=== PATIENT | female | born 2000 | race Caucasian/White ===

== ENCOUNTER 2024-01-06 22:57 | Emergency (ER) | payer MEDICAID, OTHER ==
[~2024-01-06] VITALS: Ht 160 cm; Wt 98.0 kg
[2024-01-07] MEDS: ACETAMINOPHEN 325MG TABLET PO ONE (07:40)
[2024-01-07] MEDS: ALBUTEROL (0.083%) 2.5MG/3ML NEB HHN STA (07:46)
[2024-01-07 07:55] VITALS: PULSE 55; RESP 18; O2SAT 99
[2024-01-07 09:47] LABS: CHLORIDE 108 mEq/L (98-107); POTASSIUM 4.1 mEq/L (3.5-5.1); SODIUM 143 mEq/L (136-145)
[2024-01-07 09:48] LABS: CALCIUM 9.7 mg/dL (8.7-10.4); CARBON DIOXIDE 27 mEq/L (21-32)
[2024-01-07 09:52] LABS: BASOPHILS % 0.8 % (0.0-2.0); HEMATOCRIT. 43.7 % (36.0-48.0); HEMOGLOBIN. 14.3 g/dL (12.0-16.0); MEAN CORPUSCULAR HEMOGLOBIN 28.7 pg (28.0-32.0); MEAN CORPUSCULAR HGB CONC 32.7 g/dL (31.0-37.0); MEAN CORPUSCULAR VOLUME 87.8 fL (81.0-99.0); MONOCYTES % 5.4 % (2.0-8.0); NEUTROPHILS % 46.8 % (40.0-76.0); RED BLOOD CELL COUNT 4.98 mill/uL (4.2-5.4); RED CELL DISTRIBUTION WIDTH 14.5 % (11.6-14.6); WHITE BLOOD COUNT 7.2 x1000/uL (4.5-11.0)
[2024-01-07 09:53] VITALS: BP 127/59; PULSE 62; RESP 18; TEMP 37.05852; O2SAT 98
[2024-01-07 09:53] LABS: CREATININE 0.7 mg/dL (0.6-1.0); GLUCOSE 104 mg/dL (70-105); UREA NITROGEN BLOOD 11 mg/dL (9-23)
[2024-01-07] MEDS ORDERED: ALBU18HF2 IH (09:56)
[2024-01-07] MEDS ORDERED: TOPUD PO (09:56)
[2024-01-07 09:58] LABS: HCG SCREEN NEGATIVE
[2024-01-07 10:08] LABS: DIFFERENTIAL COMMENT 1
[2024-01-07 12:42] LABS: MEAN PLATELET VOLUME 10.2 fl (7.4-10.4); PLATELET 226 x1000/uL (130-400)
== END 2024-01-07 10:17 | disposition home or self-care (01) ==
LOC: ER 22:57 → EDBEDREQ 01-07 08:45 → CANBEDREQ 01-07 10:04 → ER 01-07 10:17
DX: R07.89 Other chest pain (principal); R09.1 Pleurisy; Z20.822 Contact with and (suspected) exposure to COVID-19
CPT/HCPCS: 81025; 99285; 80048; 84703; 83880; 85025; 85379; 36415; 71045; 94640; 93005; 87426; Z7610 ×3

== ENCOUNTER 2025-01-08 07:02 | Emergency (ER) | payer MEDICAID, OTHER ==
[~2025-01-08] VITALS: Ht 160 cm; Wt 98.0 kg
[~2025-01-08 07:02] MED LIST: ALBU18HF2 IH; TOPUD PO
[2025-01-08 07:08] VITALS: O2SAT 99
[2025-01-08 09:01] LABS: BASOPHILS % 0.7 % (0.0-2.0); EOSINOPHILS % 1.1 % (0.0-5.0); HEMATOCRIT. 38.7 % (36.0-48.0); HEMOGLOBIN. 12.8 g/dL (12.0-16.0); LYMPHOCYTES % 23.1 % (20.0-50.0); MEAN PLATELET VOLUME 10.1 fl (7.4-10.4); MONOCYTES % 5.3 % (2.0-8.0); NEUTROPHILS % 69.8 % (40.0-76.0); PLATELET 206 x1000/uL (130-400); RED BLOOD CELL COUNT 4.49 mill/uL (4.2-5.4); RED CELL DISTRIBUTION WIDTH 14.1 % (11.6-14.6)
[2025-01-08 09:24] LABS: CREATININE 0.7 mg/dL (0.6-1.0); UREA NITROGEN BLOOD 6 mg/dL (9-23)
[2025-01-08 09:26] LABS: ASPARTATE AMINOTRANSFERASE 13 IU/L (<34); BILIRUBIN DIRECT 0.2 mg/dL (<=3.0); BILIRUBIN TOTAL 0.6 mg/dL (0.1-1.0); PROTEIN TOTAL 6.6 g/dL (6.0-8.3)
[2025-01-08 09:46] LABS: B-HCG QUANTITATIVE 5951 mIU/mL (<6)
[2025-01-08 10:48] VITALS: BP 103/48; PULSE 71; RESP 17; TEMP 37.1; O2SAT 99
== END 2025-01-08 10:50 | disposition home or self-care (01) ==
LOC: ER 07:02
DX: O26.891 Other specified pregnancy related conditions, first trimester (principal); O20.0 Threatened abortion; Z3A.01 Less than 8 weeks gestation of pregnancy
CPT/HCPCS: 36415; 76801; 80048; 80076; 84702; 85025; 86850; 86900; 99284

== ENCOUNTER 2025-01-19 21:09 | Emergency (ER) | payer OTHER ==
[~2025-01-19] VITALS: Ht 160 cm; Wt 98.0 kg
[2025-01-19 21:17] VITALS: O2SAT 100
[2025-01-19 21:48] LABS: CLARITY URINE CLEAR (CLEAR); COLOR URINE YELLOW (YELLOW); GLUCOSE URINE NEGATIVE (NEGATIVE); KETONES URINE NEGATIVE (NEGATIVE); LEUKOCYTE ESTERASE URINE NEGATIVE (NEGATIVE); NITRITE URINE NEGATIVE (NEGATIVE); OCCULT BLOOD URINE NEGATIVE (NEGATIVE); PH URINE 6.0 (4.5-8.0); PROTEIN URINE NEGATIVE (NEGATIVE); SPECIFIC GRAVITY URINE 1.019 (1.005-1.030); UROBILINOGEN URINE 0.2 E.U./dL (0.2-1.0)
[2025-01-19 21:50] LABS: BASOPHILS % 0.7 % (0.0-2.0); EOSINOPHILS % 1.2 % (0.0-5.0); HEMATOCRIT. 38.1 % (36.0-48.0); HEMOGLOBIN. 12.4 g/dL (12.0-16.0); LYMPHOCYTES % 30.1 % (20.0-50.0); MEAN PLATELET VOLUME 10.0 fl (7.4-10.4); MONOCYTES % 5.6 % (2.0-8.0); NEUTROPHILS % 62.4 % (40.0-76.0); PLATELET 223 x1000/uL (130-400); RED BLOOD CELL COUNT 4.38 mill/uL (4.2-5.4); RED CELL DISTRIBUTION WIDTH 14.2 % (11.6-14.6)
[2025-01-19 22:03] LABS: CREATININE 0.9 mg/dL (0.6-1.0); UREA NITROGEN BLOOD 7 mg/dL (9-23)
[2025-01-19 22:09] LABS: INR 1.0
[2025-01-19 22:19] LABS: B-HCG QUANTITATIVE 65367 mIU/mL (<6)
[2025-01-19] MEDS: SODIUM CHLORIDE 0.9% 1,000 ML IV ONE (23:25)
[2025-01-19] MEDS: ONDANSETRON HCL 4MG/2ML INJ IV ONE (23:25)
[2025-01-19 23:54] VITALS: BP 112/66; PULSE 65; RESP 19; TEMP 36.7; O2SAT 99
== END 2025-01-20 00:13 | disposition home or self-care (01) ==
LOC: ER 21:09
DX: O26.851 Spotting complicating pregnancy, first trimester (principal); R10.20 Pelvic and perineal pain unspecified side; Z3A.01 Less than 8 weeks gestation of pregnancy
CPT/HCPCS: 99285; 96374; 76801; 96361; 80048; 81003; 84702; 85025; 85610; 85730; 86850; 86900; 86901; 36415; 76817; J2405; J7030